=== PATIENT | female | born 1995 | race African-American/Black ===

== ENCOUNTER 2023-10-30 10:56 | Emergency (ER) | payer MEDICAID, OTHER ==
[~2023-10-30] VITALS: Ht 172.7 cm; Wt 48.8 kg
[2023-10-30] MEDS ORDERED: KETOROLAC TROMETH 60MG/2ML VIAL IM ONE (14:30)
[2023-10-30] MEDS ORDERED: ACET500T58 PO (15:26)
[2023-10-30] MEDS ORDERED: IBUP-1454 PO (15:26)
[2023-10-30 16:03] VITALS: BP 133/76; PULSE 98; RESP 16; TEMP 98; O2SAT 100
== END 2023-10-30 16:05 | disposition home or self-care (01) ==
LOC: ER 10:56
DX: S39.012A Strain of muscle, fascia and tendon of lower back, initial encounter (principal); Z88.0 Allergy status to penicillin; V89.2XXA Person injured in unspecified motor-vehicle accident, traffic, initial encounter; Y93.I9 Activity, other involving external motion; Y92.89 Other specified places as the place of occurrence of the external cause; Y99.8 Other external cause status
CPT/HCPCS: 72070; 72100; 96372; 99284; J1885